=== PATIENT | male | born 1930 | race Caucasian/White ===

== ENCOUNTER 2016-05-22 13:56 | Inpatient (IN) | payer OTHER ==
[~2016-05-22] VITALS: Ht 165.1 cm; Wt 76.4 kg
[~2016-05-22 13:56] MED LIST: ADVAIR 250/501 DISK IH; ALBUTEROL2.5 MG/3 M IH; ATORVASTATIN CA10 MG PO; CEFTIN500 MG PO; COREG25 M1 PO; DOCUSATE SODIU100 MG PO; ENDOCET 5-3251 EACH PO; FLOMAX0.4 MG PO; INHALER IH; JANUVIA100 MG PO; JANUVIA25 M1 PO; KENALOG,ARISTOC15 G2 TP; LISINOPRIL5 MG PO; MEMANTINE HCL10 MG PO; NORVASC5 MG PO; NOVOLOG 10100 UNITS/ SC; PANTOPRAZOLE SO40 MG PO; PLAVIX75 MG PO; SINGULAIR10 MG PO; VENTOLIN HFA18 GM IH
[2016-05-22 14:53] LABS: EOSINOPHIL (%) 0.5 % (0-5); EOSINOPHIL COUNT 0.1 K/uL (0-0.3); HEMATOCRIT 35.4 % (38.0-50.0); IMMATURE GRANULOCYTE (%) 0.4 % (0.0-0.7); IMMATURE GRANULOCYTE COUNT 0.1 K/uL; INSTRUMENT ABS NEUTROPHIL CT 14.2 K/uL; LYMPHOCYTE COUNT 1.6 K/uL (1.0-2.8); MCH 30.2 PG (29.0-34.0); MCHC 33.9 G/DL (30.0-36.0); MCV 89.2 FL (86-99); MEAN PLAT.VOLUME 9.4 uM^3 (9.0-12.4); MONOCYTE (%) 6.8 % (3-12); MONOCYTE COUNT 1.2 K/uL (0-0.8); NEUTROPHIL (%) 82.9 % (45-76); NEUTROPHIL COUNT 14.2 K/uL (1.8-6.4); PLATELET COUNT 288 K/uL (156-360); RBC DIS.WIDTH-CV 12.4 % (11.8-14.6); RBC DIS.WIDTH-SD 40.4 % (39-53); RED BLOOD COUNT 3.97 M/uL (4.00-5.50); WHITE BLOOD COUNT 17.1 K/uL (4.1-10.2)
[2016-05-22 15:08] LABS: CHLORIDE 106 mEq/L (99-109); POTASSIUM 4.6 mEq/L (3.7-5.4); SODIUM 137 mEq/L (136-147)
[2016-05-22 15:11] LABS: GLUCOSE 120 mg/dL (70-99)
[2016-05-22 15:12] LABS: ANION GAP 8 MEQ/L (2-14)
[2016-05-22 15:13] LABS: TOTAL BILIRUBIN 0.4 mg/dL (0.0-1.0)
[2016-05-22 15:14] LABS: ALKALINE PHOSPHATASE 77 IU/L (3-129); GFR ESTIMATE (CALCULATED) 56 mL/min/
[2016-05-22 15:15] LABS: UREA NITROGEN (BUN) 20 mg/dL (9-23)
[2016-05-22 15:23] LABS: TROP-I INTERPRETATION NEGATIVE; TROPONIN-I < 0.01 ng/mL (0.0-0.30)
[2016-05-22 17:00] LABS: INFLUENZA A VIRAL ANTIGEN NEGATIVE; INFLUENZA B VIRAL ANTIGEN NEGATIVE
[2016-05-22] MEDS ORDERED: LISINOPRIL10 MG PO (18:40)
[2016-05-22] MEDS ORDERED: BUMETANIDE1 MG PO (18:41)
[2016-05-22] MEDS ORDERED: QUETIAPINE FUMA25 MG PO (18:41)
[2016-05-22 21:02] VITALS: BP 148/76
[2016-05-23 07:30] VITALS: BP 155/72
[2016-05-23 09:58] LABS: POINT-OF-CARE METER ID UU14174225
[2016-05-23 11:53] LABS: POINT-OF-CARE METER ID UU14174225
[2016-05-23 17:08] LABS: POINT-OF-CARE METER ID UU14188625
[2016-05-23 19:51] VITALS: BP 158/76
[2016-05-23 21:13] LABS: POINT-OF-CARE METER ID UU14188625
[2016-05-24 08:29] VITALS: BP 149/71
[2016-05-24 22:17] LABS: POINT-OF-CARE METER ID UU14188625
[2016-05-24 23:51] VITALS: BP 156/74
[2016-05-25 07:05] LABS: HEMATOCRIT 33.6 % (38.0-50.0); MCH 30.1 PG (29.0-34.0); MCHC 33.9 G/DL (30.0-36.0); MCV 88.7 FL (86-99); MEAN PLAT.VOLUME 9.6 uM^3 (9.0-12.4); PLATELET COUNT 282 K/uL (156-360); RBC DIS.WIDTH-SD 38.7 % (39-53); RED BLOOD COUNT 3.79 M/uL (4.00-5.50); WHITE BLOOD COUNT 20.9 K/uL (4.1-10.2)
[2016-05-25 07:28] LABS: ANION GAP 7 MEQ/L (2-14); CHLORIDE 107 MEQ/L (99-109); GFR ESTIMATE (CALCULATED) > 59 mL/min/; GLUCOSE 164 mg/dL (70-99); POTASSIUM 4.2 MEQ/L (3.7-5.4); SAMPLE HEMOLYSIS CHECK 0; SAMPLE ICTERIC CHECK 0; SAMPLE LIPEMIA CHECK 0; SODIUM 139 MEQ/L (136-147)
[2016-05-25 07:35] LABS: UREA NITROGEN (BUN) 31 mg/dL (9-23)
[2016-05-25 07:49] VITALS: BP 142/68
[2016-05-25 08:14] LABS: ABS NEUTROPHIL COUNT 19.1; ANISOCYTOSIS 1+; ATYPICAL LYMPHOCYTE 0.4 %; BAND NEUTROPHILS 3.1 % (0-8.0); EOSINOPHIL ABS CT 0; INSTRUMENT ABS NEUTROPHIL CT 18.1 K/uL; OVALOCYTES 1+; PLAT.SUFFICIENCY ADEQUATE; POIKILOCYTOSIS 1+; SEG.NEUTROPHILS 88.1 % (46.0-76.0)
[2016-05-25 11:54] LABS: POINT-OF-CARE METER ID UU14188625
[2016-05-25] MEDS ORDERED: PANTOPRAZOLE SO40 MG PO (12:58)
[2016-05-25] MEDS ORDERED: MIRTAZAPINE7.5 MG PO (12:58)
[2016-05-25] MEDS ORDERED: LEVEMIR100 UNIT/2 SC (12:59)
[2016-05-25] MEDS ORDERED: NOVOLOG 10100 UNITS/ SC (13:01)
[2016-05-25] MEDS ORDERED: SPIRIVA RESPIMAT4 GM IH (13:02)
[2016-05-25] MEDS ORDERED: PREDNISONE10 M1 PO (13:03)
== END 2016-05-25 14:59 | disposition home or self-care (01) | DRG 192 ==
LOC: EME → EDBD 13:56 → EDOF 17:20 → 5SOUTH 17:20
PROVIDERS: Emergency Medicine; Family Medicine Sports Medicine
DX: J44.1 Chronic obstructive pulmonary disease with (acute) exacerbation (principal); I10 Essential (primary) hypertension; I25.10 Atherosclerotic heart disease of native coronary artery without angina pectoris; F03.90 Unspecified dementia, unspecified severity, without behavioral disturbance, psychotic disturbance, mood disturbance, and anxiety; R09.02 Hypoxemia; E78.5 Hyperlipidemia, unspecified; D72.829 Elevated white blood cell count, unspecified; E11.9 Type 2 diabetes mellitus without complications; Z95.0 Presence of cardiac pacemaker; J20.9 Acute bronchitis, unspecified; R05 Cough; Z87.891 Personal history of nicotine dependence
CPT/HCPCS: 36600; 70450; 71020; 80048; 80053; 81003; 82803; 82948; 83605; 83880; 84484; 85025; 87040; 87502; 93005; 94640; 94640 76; 94799; 99202; 99281; 99285; J0456; J1650; J1815; J2930; J7030; J7512; J7644

== ENCOUNTER 2016-07-11 19:05 | Inpatient (IN) | payer OTHER ==
[~2016-07-11] VITALS: Ht 157.5 cm; Wt 73.7 kg
[~2016-07-11 19:05] MED LIST changes: +BUMETANIDE1 MG PO; +LEVEMIR100 UNIT/2 SC; +LISINOPRIL10 MG PO; +MIRTAZAPINE7.5 MG PO; +PREDNISONE10 M1 PO; +QUETIAPINE FUMA25 MG PO; +SPIRIVA RESPIMAT4 GM IH
[2016-07-11 21:14] LABS: CHLORIDE 105 mEq/L (99-109); POTASSIUM 4.5 mEq/L (3.7-5.4); SODIUM 139 mEq/L (136-147)
[2016-07-11 21:16] LABS: GLUCOSE 89 mg/dL (70-99)
[2016-07-11 21:17] LABS: ANION GAP 8 MEQ/L (2-14)
[2016-07-11 21:20] LABS: GFR ESTIMATE (CALCULATED) 36 mL/min/
[2016-07-11 21:21] LABS: UREA NITROGEN (BUN) 32 mg/dL (9-23)
[2016-07-11 21:27] LABS: TROP-I INTERPRETATION NEGATIVE; TROPONIN-I < 0.01 ng/mL (0.0-0.30)
[2016-07-11 21:32] LABS: CARBON DIOXIDE (BICARBONATE) 31.9 MEQ/L (20-31); HEMATOCRIT 33.4 % (38.0-50.0); MCHC 33.2 G/DL (30.0-36.0); MCV 90.3 FL (86-99); MEAN PLAT.VOLUME 9.4 uM^3 (9.0-12.4); PLATELET COUNT 236 K/uL (156-360); RBC DIS.WIDTH-SD 43.1 % (39-53); WHITE BLOOD COUNT 13.5 K/uL (4.1-10.2)
[2016-07-11] MEDS ORDERED: NOVOLOG PE100 UNITS/ SC (22:34)
[2016-07-11] MEDS ORDERED: LEVEMIR FL100 UNIT/1 SC (22:34)
[2016-07-11] MEDS ORDERED: PROAIR HFA8.5 GM IH (22:35)
[2016-07-11 23:48] VITALS: BP 144/67
[2016-07-12 03:33] VITALS: BP 144/66
[2016-07-12 05:59] LABS: POINT-OF-CARE METER ID UU13113725
[2016-07-12 06:48] VITALS: BP 159/74
[2016-07-12] MEDS ORDERED: PANTOPRAZOLE SO40 MG PO (10:23)
[2016-07-12 10:38] VITALS: BP 114/80
[2016-07-12 16:34] LABS: POINT-OF-CARE METER ID UU13113725
[2016-07-12 16:44] VITALS: BP 117/60
[2016-07-12 19:27] VITALS: BP 139/74
[2016-07-12 20:08] LABS: POINT-OF-CARE METER ID UU13113725
[2016-07-13 00:07] VITALS: BP 132/67
[2016-07-13 03:49] VITALS: BP 142/82
[2016-07-13 06:38] VITALS: BP 141/67
[2016-07-13 15:01] VITALS: BP 139/63
[2016-07-13 23:05] VITALS: BP 134/78
[2016-07-14 06:11] LABS: POINT-OF-CARE METER ID UU13113725
[2016-07-14 07:10] VITALS: BP 151/72
[2016-07-14 11:19] LABS: POINT-OF-CARE METER ID UU13113725
[2016-07-14 15:55] VITALS: BP 167/79
[2016-07-14] MEDS ORDERED: MIRTAZAPINE7.5 MG PO (19:46)
[2016-07-14] MEDS ORDERED: PREDNISONE10 M1 PO (19:50)
== END 2016-07-14 20:39 | disposition home or self-care (01) | DRG 191 ==
LOC: EME 19:05 → EDOF 22:33 → 5EAST 22:33
PROVIDERS: Emergency Medicine; Family Medicine Sports Medicine
DX: J44.0 Chronic obstructive pulmonary disease with (acute) lower respiratory infection (principal); F02.81 Dementia in other diseases classified elsewhere, unspecified severity, with behavioral disturbance; J44.1 Chronic obstructive pulmonary disease with (acute) exacerbation; J20.9 Acute bronchitis, unspecified; I10 Essential (primary) hypertension; E11.9 Type 2 diabetes mellitus without complications; G30.9 Alzheimer's disease, unspecified; F02.80 Dementia in other diseases classified elsewhere, unspecified severity, without behavioral disturbance, psychotic disturbance, mood disturbance, and anxiety; I25.10 Atherosclerotic heart disease of native coronary artery without angina pectoris; E78.5 Hyperlipidemia, unspecified; Z95.0 Presence of cardiac pacemaker; Z87.891 Personal history of nicotine dependence; K21.9 Gastro-esophageal reflux disease without esophagitis
CPT/HCPCS: 71020; 80048; 82803; 82948; 83605; 83880; 84484; 85027; 87040; 93005; 94640; 94640 76; 94799; 99202; 99281; 99285; J0696; J1100; J1650; J1815; J2060; J2930; J7050

== ENCOUNTER 2016-09-03 22:38 | Emergency (ER) | payer OTHER ==
[~2016-09-03] VITALS: Ht 165.1 cm; Wt 73.1 kg
[~2016-09-03 22:38] MED LIST changes: +LEVEMIR FL100 UNIT/1 SC; +NOVOLOG PE100 UNITS/ SC; +PROAIR HFA8.5 GM IH
[2016-09-03 23:22] LABS: HEMATOCRIT 30.4 % (38.0-50.0); MCH 29.7 PG (29.0-34.0); MCHC 32.9 G/DL (30.0-36.0); MCV 90.2 FL (86-99); MEAN PLAT.VOLUME 9.6 uM^3 (9.0-12.4); PLATELET COUNT 285 K/uL (156-360); RBC DIS.WIDTH-CV 13.1 % (11.8-14.6); RBC DIS.WIDTH-SD 43.4 % (39-53); RED BLOOD COUNT 3.37 M/uL (4.00-5.50); WHITE BLOOD COUNT 16.6 K/uL (4.1-10.2)
[2016-09-03 23:37] LABS: CHLORIDE 109 mEq/L (99-109); POTASSIUM 4.7 mEq/L (3.7-5.4); SODIUM 139 mEq/L (136-147)
[2016-09-03 23:39] LABS: GLUCOSE 112 mg/dL (70-99)
[2016-09-03 23:40] LABS: ANION GAP 10 MEQ/L (2-14)
[2016-09-03 23:42] LABS: GFR ESTIMATE (CALCULATED) 30 mL/min/
[2016-09-03 23:43] LABS: UREA NITROGEN (BUN) 51 mg/dL (9-23)
[2016-09-04 00:24] LABS: ADD MIUA? YES; BILIRUBIN NEGATIVE; BLOOD NEGATIVE; COLOR YELLOW ((YELLOW)); GLUCOSE (STRIP) NEGATIVE; KETONES NEGATIVE; LEUKOCYTES NEGATIVE; NITRITE NEGATIVE; PROTEIN (STRIP) 100; SPECIFIC GRAVITY 1.014 (1.000-1.030); UROBILINOGEN 0.2 MG/DL (0.2-1.0)
[2016-09-04 00:45] LABS: AMORPHOUS URATES CRYSTALS 3+; BACTERIA 1+ /HPF; CASTS PRESENT /LPF; CRYSTALS PRESENT; EPITHELIAL CELLS RARE /HPF; MUCUS NONE SEEN /LPF; RED BLOOD CELLS NONE SEEN /HPF (0-5); UCUL ADDED? NO; WHITE BLOOD CELLS NONE SEEN /HPF (0-5)
[2016-09-04 00:51] LABS: ERTH.SED.RATE 83 MM/HR (0-20)
[2016-09-04] MEDS ORDERED: KEFLEX500 MG PO (01:43)
[2016-09-04 01:57] LABS: C-REACTIVE PROTEIN 92.9 MG/L (0-10)
[2016-09-04 02:40] VITALS: BP 121/67
== END 2016-09-04 02:42 | disposition home or self-care (01) ==
LOC: EME → EDBD 22:38 → EME 09-04 02:42
PROVIDERS: Emergency Medicine
DX: E86.0 Dehydration (principal); L03.115 Cellulitis of right lower limb; J44.9 Chronic obstructive pulmonary disease, unspecified; I10 Essential (primary) hypertension; E78.5 Hyperlipidemia, unspecified; E11.9 Type 2 diabetes mellitus without complications; F03.90 Unspecified dementia, unspecified severity, without behavioral disturbance, psychotic disturbance, mood disturbance, and anxiety; Z79.4 Long term (current) use of insulin; Z87.891 Personal history of nicotine dependence; Z95.0 Presence of cardiac pacemaker
CPT/HCPCS: 71010; 73630; 80048; 81003; 83605; 85027; 85651; 86140; 87086; 99281; 99285; J7030

== ENCOUNTER 2016-09-24 08:50 | Inpatient (IN) | payer OTHER ==
[~2016-09-24] VITALS: Ht 165.1 cm; Wt 72.0 kg
[~2016-09-24 08:50] MED LIST changes: +KEFLEX500 MG PO
[2016-09-24 10:02] LABS: EOSINOPHIL COUNT 0.1 K/uL (0-0.3); HEMATOCRIT 32.2 % (38.0-50.0); IMMATURE GRANULOCYTE (%) 0.6 % (0.0-0.7); IMMATURE GRANULOCYTE COUNT 0.1 K/uL; INSTRUMENT ABS NEUTROPHIL CT 11.4 K/uL; LYMPHOCYTE COUNT 1.4 K/uL (1.0-2.8); MCH 28.8 PG (29.0-34.0); MCHC 32.6 G/DL (30.0-36.0); MCV 88.2 FL (86-99); MONOCYTE (%) 6.3 % (3-12); MONOCYTE COUNT 0.9 K/uL (0-0.8); NEUTROPHIL (%) 82.1 % (45-76); NEUTROPHIL COUNT 11.4 K/uL (1.8-6.4); PLATELET COUNT 289 K/uL (156-360); RBC DIS.WIDTH-CV 12.6 % (11.8-14.6); RBC DIS.WIDTH-SD 41.1 % (39-53); RED BLOOD COUNT 3.65 M/uL (4.00-5.50); WHITE BLOOD COUNT 13.9 K/uL (4.1-10.2)
[2016-09-24 10:08] LABS: POINT-OF-CARE METER ID UU13113702
[2016-09-24 10:08] LABS: INTER. NORMALIZED RATIO 1.2; PROTHROMBIN TIME 12.8 SEC (10.2-12.9)
[2016-09-24 10:10] LABS: CHLORIDE 108 mEq/L (99-109); POTASSIUM 4.5 mEq/L (3.7-5.4); SODIUM 139 mEq/L (136-147)
[2016-09-24 10:12] LABS: GLUCOSE 110 mg/dL (70-99)
[2016-09-24 10:13] LABS: ANION GAP 9 MEQ/L (2-14)
[2016-09-24 10:14] LABS: TOTAL BILIRUBIN 0.4 mg/dL (0.0-1.0)
[2016-09-24 10:16] LABS: ALKALINE PHOSPHATASE 77 IU/L (3-129); GFR ESTIMATE (CALCULATED) > 59 mL/min/
[2016-09-24 10:17] LABS: UREA NITROGEN (BUN) 28 mg/dL (9-23)
[2016-09-24 10:19] LABS: LIPASE 21 U/L (1.0-51.0)
[2016-09-24 15:07] LABS: HEMATOCRIT 30.5 % (38.0-50.0); MCH 29.1 PG (29.0-34.0); MCHC 32.1 G/DL (30.0-36.0); MCV 90.5 FL (86-99); MEAN PLAT.VOLUME 9.3 uM^3 (9.0-12.4); PLATELET COUNT 280 K/uL (156-360); RBC DIS.WIDTH-CV 12.8 % (11.8-14.6); RBC DIS.WIDTH-SD 42.4 % (39-53); RED BLOOD COUNT 3.37 M/uL (4.00-5.50); WHITE BLOOD COUNT 11.2 K/uL (4.1-10.2)
[2016-09-24 19:59] VITALS: BP 148/66
[2016-09-24 21:02] LABS: HEMATOCRIT 28.9 % (38.0-50.0)
[2016-09-24 23:03] VITALS: BP 131/63
[2016-09-25 04:54] VITALS: BP 137/65
[2016-09-25 08:29] VITALS: BP 147/70
[2016-09-25 09:07] LABS: HEMATOCRIT 26.9 % (38.0-50.0)
[2016-09-25 09:31] LABS: ALKALINE PHOSPHATASE 56 IU/L (3-129); ANION GAP 7 MEQ/L (2-14); CHLORIDE 111 MEQ/L (99-109); GFR ESTIMATE (CALCULATED) > 59 mL/min/; GLUCOSE 148 mg/dL (70-99); SAMPLE HEMOLYSIS CHECK 0; SAMPLE ICTERIC CHECK 0; SAMPLE LIPEMIA CHECK 0; SODIUM 141 MEQ/L (136-147); TOTAL BILIRUBIN 0.4 MG/DL (0.0-1.0); UREA NITROGEN (BUN) 21 mg/dL (9-23)
[2016-09-25 11:58] VITALS: BP 132/63
[2016-09-25 15:56] VITALS: BP 136/63
[2016-09-25 21:28] LABS: HEMATOCRIT 29.5 % (38.0-50.0); MCV 89.9 FL (86-99)
[2016-09-25 23:13] VITALS: BP 122/58
[2016-09-26 08:22] VITALS: BP 131/60
[2016-09-26 10:26] LABS: EOSINOPHIL (%) 2.2 % (0-5); EOSINOPHIL COUNT 0.2 K/uL (0-0.3); HEMATOCRIT 28.1 % (38.0-50.0); IMMATURE GRANULOCYTE (%) 0.6 % (0.0-0.7); IMMATURE GRANULOCYTE COUNT 0.1 K/uL; INSTRUMENT ABS NEUTROPHIL CT 5.4 K/uL; LYMPHOCYTE COUNT 1.9 K/uL (1.0-2.8); MCH 29.1 PG (29.0-34.0); MCHC 32.4 G/DL (30.0-36.0); MCV 89.8 FL (86-99); MEAN PLAT.VOLUME 9.5 uM^3 (9.0-12.4); MONOCYTE (%) 11.2 % (3-12); NEUTROPHIL (%) 63.3 % (45-76); NEUTROPHIL COUNT 5.4 K/uL (1.8-6.4); PLATELET COUNT 269 K/uL (156-360); RBC DIS.WIDTH-CV 12.8 % (11.8-14.6); RBC DIS.WIDTH-SD 41.5 % (39-53); RED BLOOD COUNT 3.13 M/uL (4.00-5.50); WHITE BLOOD COUNT 8.5 K/uL (4.1-10.2)
[2016-09-26 10:34] LABS: HEMATOCRIT 28.1 % (38.0-50.0); MCV 89.8 FL (86-99)
[2016-09-26 10:38] LABS: ANION GAP 9 MEQ/L (2-14); CHLORIDE 110 MEQ/L (99-109); POTASSIUM 4.5 MEQ/L (3.7-5.4); SAMPLE HEMOLYSIS CHECK 0; SAMPLE ICTERIC CHECK 0; SAMPLE LIPEMIA CHECK 0; SODIUM 141 MEQ/L (136-147)
[2016-09-26 10:43] LABS: GFR ESTIMATE (CALCULATED) 56 mL/min/; GLUCOSE 118 mg/dL (70-99); UREA NITROGEN (BUN) 19 mg/dL (9-23)
[2016-09-26 11:29] LABS: POINT-OF-CARE METER ID UU13113725
[2016-09-26 15:48] VITALS: BP 150/75
[2016-09-26 16:18] LABS: POINT-OF-CARE METER ID UU13113725
[2016-09-26] MEDS ORDERED: AZITHROMYCIN500 M1 PO (19:03)
[2016-09-26] MEDS ORDERED: QUETIAPINE FUMA25 MG PO (19:04)
[2016-09-26] MEDS ORDERED: MUCINEX600 MG PO (19:05)
[2016-09-26] MEDS ORDERED: ONDANSETRON ODT4 MG PO (19:05)
[2016-09-26] MEDS ORDERED: PROTONIX IV40 MG IV (19:06)
[2016-09-26 20:01] LABS: HEMATOCRIT 28.6 % (38.0-50.0); MCV 88.8 FL (86-99)
[2016-09-27] MEDS ORDERED: PLAVIX75 MG PO ×2 (08:42→08:44)
== END 2016-09-26 21:39 | disposition home or self-care (01) | DRG 377 ==
LOC: EME 08:50 → EDOF 13:03 → ENRESERV 13:04 → 5EAST 15:29
PROVIDERS: Emergency Medicine; Family Medicine Sports Medicine
DX: K92.0 Hematemesis (principal); J44.0 Chronic obstructive pulmonary disease with (acute) lower respiratory infection; J18.9 Pneumonia, unspecified organism; J20.9 Acute bronchitis, unspecified; K21.9 Gastro-esophageal reflux disease without esophagitis; I12.9 Hypertensive chronic kidney disease with stage 1 through stage 4 chronic kidney disease, or unspecified chronic kidney disease; N18.9 Chronic kidney disease, unspecified; E11.22 Type 2 diabetes mellitus with diabetic chronic kidney disease; F03.91 Unspecified dementia, unspecified severity, with behavioral disturbance; D64.9 Anemia, unspecified; I25.10 Atherosclerotic heart disease of native coronary artery without angina pectoris; R26.2 Difficulty in walking, not elsewhere classified; E78.5 Hyperlipidemia, unspecified; F32.9 Major depressive disorder, single episode, unspecified; Z95.0 Presence of cardiac pacemaker; Z79.82 Long term (current) use of aspirin; Z79.02 Long term (current) use of antithrombotics/antiplatelets; Z79.4 Long term (current) use of insulin; Z87.891 Personal history of nicotine dependence
CPT/HCPCS: 71010; 71250; 74241; 80048; 80053; 82948; 83690; 85014; 85018; 85025; 85027; 85610; 93005; 94640; 94640 76; 94760; 94799; 99202; 99281; 99284; C9113; J0696; J1815; J2405; J2765; J7030; J7050

== ENCOUNTER 2016-10-11 04:12 | Inpatient (IN) | payer OTHER ==
[~2016-10-11] VITALS: Ht 157.5 cm; Wt 70.2 kg
[~2016-10-11 04:12] MED LIST changes: +AZITHROMYCIN500 M1 PO; +MUCINEX600 MG PO; +ONDANSETRON ODT4 MG PO; +PROTONIX IV40 MG IV
[2016-10-11 04:53] LABS: HEMATOCRIT 31.9 % (38.0-50.0); MCH 29.1 PG (29.0-34.0); MCHC 32.6 G/DL (30.0-36.0); MCV 89.1 FL (86-99); MEAN PLAT.VOLUME 9.5 uM^3 (9.0-12.4); PLATELET COUNT 315 K/uL (156-360); RBC DIS.WIDTH-CV 13.2 % (11.8-14.6); RBC DIS.WIDTH-SD 43.1 % (39-53); RED BLOOD COUNT 3.58 M/uL (4.00-5.50)
[2016-10-11 05:06] LABS: CHLORIDE 107 mEq/L (99-109); POTASSIUM 4.2 mEq/L (3.7-5.4); SODIUM 140 mEq/L (136-147)
[2016-10-11 05:09] LABS: GLUCOSE 162 mg/dL (70-99)
[2016-10-11 05:10] LABS: ANION GAP 12 MEQ/L (2-14)
[2016-10-11 05:11] LABS: TOTAL BILIRUBIN 0.6 mg/dL (0.0-1.0)
[2016-10-11 05:12] LABS: ALKALINE PHOSPHATASE 83 IU/L (3-129); GFR ESTIMATE (CALCULATED) 34 mL/min/
[2016-10-11 05:13] LABS: UREA NITROGEN (BUN) 32 mg/dL (9-23)
[2016-10-11 05:16] LABS: LIPASE 27 U/L (1.0-51.0)
[2016-10-11 05:44] LABS: TROP-I INTERPRETATION NEGATIVE; TROPONIN-I 0.01 ng/mL (0.0-0.30)
[2016-10-11 07:45] VITALS: BP 127/60
[2016-10-11 11:21] VITALS: BP 155/79
[2016-10-11 12:20] LABS: POINT-OF-CARE METER ID UU13113725
[2016-10-11 16:00] VITALS: BP 134/60
[2016-10-11 17:28] LABS: POINT-OF-CARE METER ID UU13113725
[2016-10-11 19:04] VITALS: BP 168/70
[2016-10-11 23:05] VITALS: BP 111/55
[2016-10-12 03:00] VITALS: BP 125/60
[2016-10-12 07:04] LABS: EOSINOPHIL (%) 0.7 % (0-5); EOSINOPHIL COUNT 0.1 K/uL (0-0.3); HEMATOCRIT 28.3 % (38.0-50.0); IMMATURE GRANULOCYTE (%) 0.4 % (0.0-0.7); INSTRUMENT ABS NEUTROPHIL CT 7.7 K/uL; LYMPHOCYTE COUNT 1.7 K/uL (1.0-2.8); MCH 28.5 PG (29.0-34.0); MCHC 31.4 G/DL (30.0-36.0); MCV 90.7 FL (86-99); MEAN PLAT.VOLUME 9.8 uM^3 (9.0-12.4); MONOCYTE (%) 10.7 % (3-12); MONOCYTE COUNT 1.1 K/uL (0-0.8); NEUTROPHIL (%) 72.2 % (45-76); NEUTROPHIL COUNT 7.7 K/uL (1.8-6.4); PLATELET COUNT 253 K/uL (156-360); RBC DIS.WIDTH-CV 13.5 % (11.8-14.6); RBC DIS.WIDTH-SD 44.2 % (39-53); RED BLOOD COUNT 3.12 M/uL (4.00-5.50); WHITE BLOOD COUNT 10.7 K/uL (4.1-10.2)
[2016-10-12 07:28] LABS: ANION GAP 7 MEQ/L (2-14); CHLORIDE 112 MEQ/L (99-109); GFR ESTIMATE (CALCULATED) 41 mL/min/; POTASSIUM 3.8 MEQ/L (3.7-5.4); SAMPLE HEMOLYSIS CHECK 0; SAMPLE ICTERIC CHECK 0; SAMPLE LIPEMIA CHECK 0; SODIUM 145 MEQ/L (136-147); UREA NITROGEN (BUN) 31 mg/dL (9-23)
[2016-10-12 07:31] LABS: GLUCOSE 118 mg/dL (70-99)
[2016-10-12 13:05] LABS: POINT-OF-CARE METER ID UU13113725
[2016-10-12 16:20] VITALS: BP 164/67
[2016-10-12 16:39] LABS: POINT-OF-CARE METER ID UU13113725
[2016-10-12] MEDS ORDERED: PROTONIX IV40 MG PO (18:01)
== END 2016-10-12 18:29 | disposition home or self-care (01) | DRG 389 ==
LOC: EME 04:12 → EDOF 05:55 → ENRESERV 06:06 → 5EAST 07:12
PROVIDERS: Family Medicine Sports Medicine
DX: K56.41 Fecal impaction (principal); F02.81 Dementia in other diseases classified elsewhere, unspecified severity, with behavioral disturbance; F05 Delirium due to known physiological condition; J44.9 Chronic obstructive pulmonary disease, unspecified; N18.9 Chronic kidney disease, unspecified; K21.9 Gastro-esophageal reflux disease without esophagitis; I25.10 Atherosclerotic heart disease of native coronary artery without angina pectoris; I12.9 Hypertensive chronic kidney disease with stage 1 through stage 4 chronic kidney disease, or unspecified chronic kidney disease; E86.0 Dehydration; E78.5 Hyperlipidemia, unspecified; E11.22 Type 2 diabetes mellitus with diabetic chronic kidney disease; D64.9 Anemia, unspecified; K52.9 Noninfective gastroenteritis and colitis, unspecified; G30.8 Other Alzheimer's disease; Z91.83 Wandering in diseases classified elsewhere; Z87.891 Personal history of nicotine dependence; Z87.01 Personal history of pneumonia (recurrent); Z95.0 Presence of cardiac pacemaker
CPT/HCPCS: 71250; 74176; 80048; 80053; 81003; 82948; 83605; 83690; 84484; 85025; 85027; 87493; 93005; 94640; 94640 76; 94799; 99202; 99281; 99285; C9113; J1650; J1815; J2405; J3010; J7030; J7120; Q0169; S0030

== ENCOUNTER 2017-01-26 16:41 | Emergency (ER) | payer OTHER ==
[~2017-01-26] VITALS: Ht 165.1 cm; Wt 67.7 kg
[~2017-01-26 16:41] MED LIST changes: +PROTONIX IV40 MG PO
[2017-01-26 20:01] LABS: HEMATOCRIT 35.8 % (38.0-50.0); MCH 29.7 PG (29.0-34.0); MCHC 33.5 G/DL (30.0-36.0); MCV 88.6 FL (86-99); MEAN PLAT.VOLUME 9.9 uM^3 (9.0-12.4); PLATELET COUNT 253 K/uL (156-360); RBC DIS.WIDTH-CV 13.4 % (11.8-14.6); RBC DIS.WIDTH-SD 43.8 % (39-53); RED BLOOD COUNT 4.04 M/uL (4.00-5.50); WHITE BLOOD COUNT 9.7 K/uL (4.1-10.2)
[2017-01-26 20:09] LABS: CHLORIDE 111 mEq/L (99-109); POTASSIUM 4.5 mEq/L (3.7-5.4); SODIUM 143 mEq/L (136-147)
[2017-01-26 20:11] LABS: GLUCOSE 118 mg/dL (70-99)
[2017-01-26 20:12] LABS: ANION GAP 11 MEQ/L (2-14)
[2017-01-26 20:13] LABS: TOTAL BILIRUBIN 0.5 mg/dL (0.0-1.0)
[2017-01-26 20:15] LABS: ALKALINE PHOSPHATASE 77 IU/L (3-129); GFR ESTIMATE (CALCULATED) 56 mL/min/ (58.99-99999)
[2017-01-26 20:16] LABS: UREA NITROGEN (BUN) 24 mg/dL (9-23)
[2017-01-26 20:18] LABS: LIPASE 18 U/L (1.0-51.0)
[2017-01-26 20:59] LABS: TROP-I INTERPRETATION NEGATIVE; TROPONIN-I 0.02 ng/mL (0.0-0.30)
[2017-01-26 22:00] VITALS: BP 126/61
[2017-01-26 22:11] LABS: ADD MIUA? YES; BILIRUBIN NEGATIVE; BLOOD MODERATE; COLOR YELLOW ((YELLOW)); GLUCOSE (STRIP) NEGATIVE; KETONES NEGATIVE; LEUKOCYTES MODERATE; NITRITE NEGATIVE; PROTEIN (STRIP) 100; UROBILINOGEN 0.2 MG/DL (0.2-1.0)
[2017-01-26 22:28] LABS: BACTERIA 2+ /HPF; CASTS NONE SEEN /LPF; CRYSTALS NONE SEEN; EPITHELIAL CELLS RARE /HPF; MUCUS NONE SEEN /LPF; UCUL ADDED? YES; WHITE BLOOD CELLS 20-30 /HPF (0-5)
[2017-01-26] MEDS ORDERED: CIPRO500 MG PO (23:28)
[2017-01-26] MEDS ORDERED: ONDANSETRON ODT4 MG PO (23:28)
[2017-01-28] MEDS ORDERED: PROTONIX40 MG PO (15:10)
== END 2017-01-27 00:25 | disposition home or self-care (01) ==
LOC: EME 16:41
PROVIDERS: Emergency Medicine
DX: N39.0 Urinary tract infection, site not specified (principal); R11.2 Nausea with vomiting, unspecified; R07.9 Chest pain, unspecified; M79.89 Other specified soft tissue disorders; F03.90 Unspecified dementia, unspecified severity, without behavioral disturbance, psychotic disturbance, mood disturbance, and anxiety; I12.9 Hypertensive chronic kidney disease with stage 1 through stage 4 chronic kidney disease, or unspecified chronic kidney disease; N18.9 Chronic kidney disease, unspecified; E78.5 Hyperlipidemia, unspecified; J44.9 Chronic obstructive pulmonary disease, unspecified; Z87.01 Personal history of pneumonia (recurrent); Z95.0 Presence of cardiac pacemaker; Z87.891 Personal history of nicotine dependence
CPT/HCPCS: 71010; 74176; 80053; 81003; 83605; 83690; 84484; 85027; 87040; 87077; 87086; 87186; 87502; 87801; 93005; 99281; 99285; J0696; J2060; J2405

== ENCOUNTER 2017-01-27 15:31 | Inpatient (IN) | payer OTHER ==
[~2017-01-27] VITALS: Ht 165.1 cm; Wt 61.6 kg
[~2017-01-27 15:31] MED LIST changes: +CIPRO500 MG PO
[2017-01-27 16:51] LABS: EOSINOPHIL (%) 0.5 % (0-5); HEMATOCRIT 35.6 % (38.0-50.0); IMMATURE GRANULOCYTE (%) 0.5 % (0.0-0.7); INSTRUMENT ABS NEUTROPHIL CT 5.4 K/uL; LYMPHOCYTE COUNT 1.2 K/uL (1.0-2.8); MCH 29.6 PG (29.0-34.0); MCHC 33.1 G/DL (30.0-36.0); MCV 89.4 FL (86-99); MEAN PLAT.VOLUME 10.1 uM^3 (9.0-12.4); MONOCYTE COUNT 0.7 K/uL (0-0.8); NEUTROPHIL COUNT 5.4 K/uL (1.8-6.4); PLATELET COUNT 243 K/uL (156-360); RBC DIS.WIDTH-CV 13.2 % (11.8-14.6); RBC DIS.WIDTH-SD 43.4 % (39-53); RED BLOOD COUNT 3.98 M/uL (4.00-5.50); WHITE BLOOD COUNT 7.4 K/uL (4.1-10.2)
[2017-01-27 16:59] LABS: CHLORIDE 108 mEq/L (99-109); POTASSIUM 4.2 mEq/L (3.7-5.4); SODIUM 140 mEq/L (136-147)
[2017-01-27 17:01] LABS: GLUCOSE 111 mg/dL (70-99)
[2017-01-27 17:03] LABS: ANION GAP 11 MEQ/L (2-14); TOTAL BILIRUBIN 0.4 mg/dL (0.0-1.0)
[2017-01-27 17:05] LABS: ALKALINE PHOSPHATASE 79 IU/L (3-129); GFR ESTIMATE (CALCULATED) > 59 mL/min/ (58.99-99999)
[2017-01-27 17:06] LABS: UREA NITROGEN (BUN) 23 mg/dL (9-23)
[2017-01-27 20:50] VITALS: BP 136/61
[2017-01-28 00:50] VITALS: BP 143/67
[2017-01-28 06:05] LABS: EOSINOPHIL (%) 1.6 % (0-5); EOSINOPHIL COUNT 0.1 K/uL (0-0.3); IMMATURE GRANULOCYTE (%) 0.5 % (0.0-0.7); INSTRUMENT ABS NEUTROPHIL CT 4.6 K/uL; LYMPHOCYTE COUNT 1.6 K/uL (1.0-2.8); MCH 29.7 PG (29.0-34.0); MCHC 33.1 G/DL (30.0-36.0); MCV 89.6 FL (86-99); MEAN PLAT.VOLUME 9.9 uM^3 (9.0-12.4); MONOCYTE (%) 11.6 % (3-12); MONOCYTE COUNT 0.9 K/uL (0-0.8); NEUTROPHIL (%) 63.5 % (45-76); NEUTROPHIL COUNT 4.6 K/uL (1.8-6.4); PLATELET COUNT 242 K/uL (156-360); RBC DIS.WIDTH-CV 13.2 % (11.8-14.6); RBC DIS.WIDTH-SD 43.3 % (39-53); RED BLOOD COUNT 3.57 M/uL (4.00-5.50); WHITE BLOOD COUNT 7.3 K/uL (4.1-10.2)
[2017-01-28 06:40] LABS: ANION GAP 8 MEQ/L (2-14); CHLORIDE 110 MEQ/L (99-109); GFR ESTIMATE (CALCULATED) > 59 mL/min/ (58.99-99999); GLUCOSE 95 mg/dL (70-99); POTASSIUM 3.7 MEQ/L (3.7-5.4); SAMPLE HEMOLYSIS CHECK 0; SAMPLE ICTERIC CHECK 0; SAMPLE LIPEMIA CHECK 0; SODIUM 142 MEQ/L (136-147); UREA NITROGEN (BUN) 19 mg/dL (9-23)
[2017-01-28 08:12] VITALS: BP 166/78
[2017-01-28] MEDS ORDERED: PROTONIX40 MG PO (15:10)
[2017-01-28 16:10] VITALS: BP 132/60
[2017-01-28 23:25] VITALS: BP 142/62
[2017-01-29 07:58] VITALS: BP 129/58
[2017-01-29 18:26] VITALS: BP 126/72
[2017-01-30 06:10] LABS: EOSINOPHIL (%) 2.5 % (0-5); EOSINOPHIL COUNT 0.2 K/uL (0-0.3); IMMATURE GRANULOCYTE (%) 0.4 % (0.0-0.7); INSTRUMENT ABS NEUTROPHIL CT 6.2 K/uL; LYMPHOCYTE COUNT 1.8 K/uL (1.0-2.8); MCH 28.6 PG (29.0-34.0); MCHC 32.7 G/DL (30.0-36.0); MCV 87.5 FL (86-99); MEAN PLAT.VOLUME 9.8 uM^3 (9.0-12.4); MONOCYTE (%) 11.5 % (3-12); MONOCYTE COUNT 1.1 K/uL (0-0.8); NEUTROPHIL (%) 66.3 % (45-76); NEUTROPHIL COUNT 6.2 K/uL (1.8-6.4); PLATELET COUNT 268 K/uL (156-360); RBC DIS.WIDTH-CV 13.1 % (11.8-14.6); RBC DIS.WIDTH-SD 42.1 % (39-53); RED BLOOD COUNT 3.77 M/uL (4.00-5.50); WHITE BLOOD COUNT 9.3 K/uL (4.1-10.2)
[2017-01-30 06:39] LABS: ANION GAP 10 MEQ/L (2-14); CHLORIDE 108 MEQ/L (99-109); GFR ESTIMATE (CALCULATED) > 59 mL/min/ (58.99-99999); GLUCOSE 105 mg/dL (70-99); POTASSIUM 3.9 MEQ/L (3.7-5.4); SAMPLE HEMOLYSIS CHECK 0; SAMPLE ICTERIC CHECK 0; SAMPLE LIPEMIA CHECK 0; SODIUM 142 MEQ/L (136-147); UREA NITROGEN (BUN) 19 mg/dL (9-23)
[2017-01-30 07:42] VITALS: BP 155/75
[2017-01-30] MEDS ORDERED: TYLENOL REGULA325 MG PO (11:27)
[2017-01-30] MEDS ORDERED: CIPRO500 MG PO (11:29)
== END 2017-01-30 16:54 | disposition home or self-care (01) | DRG 690 ==
LOC: EME → EDBD 15:31 → EDOF 19:10 → 5EAST 19:10 → ENRESERV 19:27 → 5EAST 20:15
PROVIDERS: Emergency Medicine; Family Medicine Sports Medicine
DX: N39.0 Urinary tract infection, site not specified (principal); K21.9 Gastro-esophageal reflux disease without esophagitis; J43.9 Emphysema, unspecified; I12.9 Hypertensive chronic kidney disease with stage 1 through stage 4 chronic kidney disease, or unspecified chronic kidney disease; E11.22 Type 2 diabetes mellitus with diabetic chronic kidney disease; B96.20 Unspecified Escherichia coli [E. coli] as the cause of diseases classified elsewhere; N18.9 Chronic kidney disease, unspecified; Z95.0 Presence of cardiac pacemaker; E78.5 Hyperlipidemia, unspecified; F02.81 Dementia in other diseases classified elsewhere, unspecified severity, with behavioral disturbance; G30.9 Alzheimer's disease, unspecified; I25.10 Atherosclerotic heart disease of native coronary artery without angina pectoris; Z87.01 Personal history of pneumonia (recurrent); Z79.899 Other long term (current) drug therapy
CPT/HCPCS: 71020; 80048; 80053; 81003; 83605; 85025; 87040; 94640; 94640 76; 99202; 99281; 99285; J0696; J1650; J1956

== ENCOUNTER 2017-03-31 10:21 | Inpatient (IN) | payer OTHER ==
[~2017-03-31] VITALS: Ht 165.1 cm; Wt 68.3 kg
[~2017-03-31 10:21] MED LIST changes: +PROTONIX40 MG PO; +TYLENOL REGULA325 MG PO
[2017-03-31 11:47] LABS: BASE EXCESS -0.1 mEq/L (-3 to +3); BICARBONATE 23.6 mEq/L (22-26); CARBOXY HGB 1.9 % (0-5); METHEMOGLOBIN 0.7 % (0-1.5); PCO2 34 mm Hg (35-45); PO2 96 mm Hg (80-100); pH 7.45 (7.35-7.45)
[2017-03-31 11:49] LABS: COMMENTS - BLOOD GASES A+C+; DEVICE NCH; O2 FLOW 13 L/MIN; SITE LR
[2017-03-31 11:50] LABS: TOTAL RESP RATE 25 resp/min
[2017-03-31 11:52] LABS: BASOPHIL (%) 0.2 % (0-1); EOSINOPHIL (%) 0.1 % (0-5); HEMATOCRIT 34.7 % (38.0-50.0); HEMOGLOBIN 11.7 G/DL (12.5-16.6); IMMATURE GRANULOCYTE (%) 0.5 % (0.0-0.7); LYMPHOCYTE (%) 10.8 % (15-42); LYMPHOCYTE COUNT 2.1 K/uL (1.0-2.8); MCH 29.9 PG (29.0-34.0); MCHC 33.7 G/DL (30.0-36.0); MCV 88.7 FL (86-99); MONOCYTE (%) 6.9 % (3-12); MONOCYTE COUNT 1.3 K/uL (0-0.8); NEUTROPHIL (%) 81.5 % (45-76); NEUTROPHIL COUNT 15.8 K/uL (1.8-6.4); PLATELET COUNT 207 K/uL (156-360); RBC DIS.WIDTH-CV 13.4 % (11.8-14.6); RBC DIS.WIDTH-SD 43.8 % (39-53); RED BLOOD COUNT 3.91 M/uL (4.00-5.50); WHITE BLOOD COUNT 19.4 K/uL (4.1-10.2)
[2017-03-31 11:58] LABS: INTER. NORMALIZED RATIO 1.2
[2017-03-31 12:01] LABS: PTT 29.7 SEC (25-37)
[2017-03-31 12:02] LABS: CHLORIDE 107 mEq/L (99-109); POTASSIUM 5.3 mEq/L (3.7-5.4); SODIUM 138 mEq/L (136-147)
[2017-03-31 12:04] LABS: GLUCOSE 145 mg/dL (70-99)
[2017-03-31 12:08] LABS: CREATININE 1.4 mg/dL (0.6-1.3); GFR ESTIMATE (CALCULATED) 51 mL/min/ (58.99-99999)
[2017-03-31 12:09] LABS: UREA NITROGEN (BUN) 27 mg/dL (9-23)
[2017-03-31 12:13] LABS: TROP-I INTERPRETATION NEGATIVE; TROPONIN-I < 0.01 ng/mL (0.0-0.30)
[2017-03-31] MEDS ORDERED: JANUVIA100 MG PO (15:02)
[2017-03-31 19:00] VITALS: BP 130/73
[2017-03-31 23:21] VITALS: BP 147/54
[2017-04-01 03:35] VITALS: BP 113/56
[2017-04-01 05:46] LABS: BASOPHIL (%) 0.2 % (0-1); EOSINOPHIL (%) 0 % (0-5); HEMATOCRIT 34.3 % (38.0-50.0); HEMOGLOBIN 11.3 G/DL (12.5-16.6); IMMATURE GRANULOCYTE (%) 0.4 % (0.0-0.7); LYMPHOCYTE (%) 5.1 % (15-42); LYMPHOCYTE COUNT 0.9 K/uL (1.0-2.8); MCH 29.7 PG (29.0-34.0); MCHC 32.9 G/DL (30.0-36.0); MCV 90.3 FL (86-99); MONOCYTE (%) 1.2 % (3-12); MONOCYTE COUNT 0.2 K/uL (0-0.8); NEUTROPHIL (%) 93.1 % (45-76); NEUTROPHIL COUNT 16.1 K/uL (1.8-6.4); PLATELET COUNT 201 K/uL (156-360); RBC DIS.WIDTH-CV 13.4 % (11.8-14.6); RBC DIS.WIDTH-SD 44.2 % (39-53); WHITE BLOOD COUNT 17.3 K/uL (4.1-10.2)
[2017-04-01 06:07] LABS: CHLORIDE 105 MEQ/L (99-109); CREATININE 1.5 MG/DL (0.6-1.3); GFR ESTIMATE (CALCULATED) 47 mL/min/ (58.99-99999); GLUCOSE 215 mg/dL (70-99); POTASSIUM 5.1 MEQ/L (3.7-5.4); SODIUM 137 MEQ/L (136-147); UREA NITROGEN (BUN) 35 mg/dL (9-23)
[2017-04-01 07:15] VITALS: BP 132/65
[2017-04-01 12:30] VITALS: BP 147/66
[2017-04-01 16:14] VITALS: BP 130/64
[2017-04-01 20:34] VITALS: BP 127/81
[2017-04-01 23:27] VITALS: BP 143/63
[2017-04-02 03:34] VITALS: BP 119/72
[2017-04-02 06:22] LABS: BASOPHIL (%) 0.1 % (0-1); EOSINOPHIL (%) 0 % (0-5); HEMATOCRIT 32.3 % (38.0-50.0); HEMOGLOBIN 10.6 G/DL (12.5-16.6); IMMATURE GRANULOCYTE (%) 0.7 % (0.0-0.7); LYMPHOCYTE (%) 4.8 % (15-42); LYMPHOCYTE COUNT 0.9 K/uL (1.0-2.8); MCH 29.2 PG (29.0-34.0); MCHC 32.8 G/DL (30.0-36.0); MONOCYTE (%) 2.5 % (3-12); MONOCYTE COUNT 0.5 K/uL (0-0.8); NEUTROPHIL (%) 91.9 % (45-76); NEUTROPHIL COUNT 17.7 K/uL (1.8-6.4); PLATELET COUNT 211 K/uL (156-360); RBC DIS.WIDTH-CV 12.9 % (11.8-14.6); RBC DIS.WIDTH-SD 42.5 % (39-53); RED BLOOD COUNT 3.63 M/uL (4.00-5.50); WHITE BLOOD COUNT 19.3 K/uL (4.1-10.2)
[2017-04-02 06:57] LABS: CHLORIDE 107 MEQ/L (99-109); CREATININE 1.4 MG/DL (0.6-1.3); GFR ESTIMATE (CALCULATED) 51 mL/min/ (58.99-99999); GLUCOSE 191 mg/dL (70-99); SODIUM 139 MEQ/L (136-147); UREA NITROGEN (BUN) 50 mg/dL (9-23)
[2017-04-02 08:50] VITALS: BP 132/62
[2017-04-02 12:40] VITALS: BP 125/59
[2017-04-02 16:50] VITALS: BP 155/88
[2017-04-02 20:15] VITALS: BP 170/76
[2017-04-03] VITALS (7 sets, daily range): BP systolic 126–150; BP diastolic 66–98
[2017-04-04 10:34] VITALS: BP 176/91
[2017-04-04 11:50] VITALS: BP 151/74
[2017-04-04] MEDS ORDERED: PREDNISONE20 MG PO (12:33)
[2017-04-04] MEDS ORDERED: AMOX TR-K CLV1 EAC4 PO (12:33)
[2017-04-04] MEDS ORDERED: DOCUSATE SODIU100 MG PO (12:33)
[2017-04-04] MEDS ORDERED: ZOLPIDEM TARTRAT5 MG PO (12:33)
== END 2017-04-04 14:28 | disposition home or self-care (01) | DRG 178 ==
LOC: EME 10:21 → 4EAST 15:33 → EDOF 15:33 → ENRESERV 15:35 → 4EAST 17:33 → ENRESERV 04-03 16:43 → 3EAST 04-03 20:21 → ENPENDDIS 04-04 → 3EAST 04-04 14:28
PROVIDERS: Emergency Medicine; Family Medicine Sports Medicine
DX: J69.0 Pneumonitis due to inhalation of food and vomit (principal); J44.0 Chronic obstructive pulmonary disease with (acute) lower respiratory infection; J44.1 Chronic obstructive pulmonary disease with (acute) exacerbation; F02.81 Dementia in other diseases classified elsewhere, unspecified severity, with behavioral disturbance; J98.11 Atelectasis; F05 Delirium due to known physiological condition; J90 Pleural effusion, not elsewhere classified; G30.9 Alzheimer's disease, unspecified; J15.9 Unspecified bacterial pneumonia; E78.5 Hyperlipidemia, unspecified; E86.0 Dehydration; E11.22 Type 2 diabetes mellitus with diabetic chronic kidney disease; I12.9 Hypertensive chronic kidney disease with stage 1 through stage 4 chronic kidney disease, or unspecified chronic kidney disease; I25.10 Atherosclerotic heart disease of native coronary artery without angina pectoris; K21.9 Gastro-esophageal reflux disease without esophagitis; K59.00 Constipation, unspecified; N18.1 Chronic kidney disease, stage 1; D64.9 Anemia, unspecified; F41.9 Anxiety disorder, unspecified; J30.9 Allergic rhinitis, unspecified; M19.90 Unspecified osteoarthritis, unspecified site; Z87.891 Personal history of nicotine dependence; Z79.84 Long term (current) use of oral hypoglycemic drugs; Z79.51 Long term (current) use of inhaled steroids; Z87.01 Personal history of pneumonia (recurrent); Z95.0 Presence of cardiac pacemaker
CPT/HCPCS: 36600; 71045; 71275; 74230; 80048; 81003; 82803; 82948; 83605; 83880; 84484; 85025; 85610; 85730; 87040; 87070; 87205; 87449; 87502; 92526 GN; 92611 GN; 93005; 94640; 94640 76; 94799; 99281; 99285; J0456; J0692; J1630; J1650; J1815; J1956; J2060; J2543; J2930; J7030; J7050; J7512

== ENCOUNTER 2017-04-27 09:57 | Inpatient (IN) | payer OTHER ==
[~2017-04-27] VITALS: Ht 162.6 cm; Wt 62.5 kg
[~2017-04-27 09:57] MED LIST changes: +AMOX TR-K CLV1 EAC4 PO; +PREDNISONE20 MG PO; +ZOLPIDEM TARTRAT5 MG PO
[2017-04-27 10:34] LABS: BASOPHIL (%) 0.2 % (0-1); EOSINOPHIL (%) 0.1 % (0-5); HEMATOCRIT 37.3 % (38.0-50.0); HEMOGLOBIN 12.7 G/DL (12.5-16.6); IMMATURE GRANULOCYTE (%) 0.4 % (0.0-0.7); LYMPHOCYTE (%) 9.7 % (15-42); LYMPHOCYTE COUNT 1.3 K/uL (1.0-2.8); MCH 30.3 PG (29.0-34.0); MONOCYTE (%) 9.7 % (3-12); MONOCYTE COUNT 1.3 K/uL (0-0.8); NEUTROPHIL (%) 79.9 % (45-76); NEUTROPHIL COUNT 10.4 K/uL (1.8-6.4); PLATELET COUNT 317 K/uL (156-360); RBC DIS.WIDTH-CV 13.6 % (11.8-14.6); RBC DIS.WIDTH-SD 43.9 % (39-53); RED BLOOD COUNT 4.19 M/uL (4.00-5.50)
[2017-04-27 10:42] LABS: ALBUMIN 3.5 g/dL (3.2-4.8); CHLORIDE 108 mEq/L (99-109); POTASSIUM 4.2 mEq/L (3.7-5.4); SODIUM 141 mEq/L (136-147)
[2017-04-27 10:44] LABS: GLUCOSE 144 mg/dL (70-99); TOTAL PROTEIN 7.4 g/dL (6.4-8.3)
[2017-04-27 10:46] LABS: TOTAL BILIRUBIN 0.6 mg/dL (0.0-1.0)
[2017-04-27 10:48] LABS: ALKALINE PHOSPHATASE 112 IU/L (3-129); CREATININE 1.3 mg/dL (0.6-1.3); GFR ESTIMATE (CALCULATED) 56 mL/min/ (58.99-99999)
[2017-04-27 10:49] LABS: UREA NITROGEN (BUN) 20 mg/dL (9-23)
[2017-04-27 10:50] LABS: AST (GOT) 13 IU/L (2-34)
[2017-04-27 10:51] LABS: ALT (GPT) 9 IU/L (3-49)
[2017-04-27 10:54] LABS: TROP-I INTERPRETATION NEGATIVE; TROPONIN-I < 0.01 ng/mL (0.0-0.30)
[2017-04-27 11:04] LABS: BASE EXCESS -0.6 mEq/L (-3 to +3); BICARBONATE 23.1 mEq/L (22-26); CARBOXY HGB 1.5 % (0-5); COMMENTS - BLOOD GASES +C; DEVICE NC; METHEMOGLOBIN 0.9 % (0-1.5); O2 FLOW 5 L/MIN; PCO2 34 mm Hg (35-45); PO2 104 mm Hg (80-100); SITE RR +A; TOTAL RESP RATE 24 resp/min; pH 7.44 (7.35-7.45)
[2017-04-27 18:18] VITALS: BP 101/55
[2017-04-27 20:16] VITALS: BP 130/60
[2017-04-28 00:03] VITALS: BP 129/62
[2017-04-28 04:22] VITALS: BP 132/66
[2017-04-28 06:33] LABS: BASOPHIL (%) 0.1 % (0-1); EOSINOPHIL (%) 0 % (0-5); HEMATOCRIT 31.1 % (38.0-50.0); IMMATURE GRANULOCYTE (%) 0.9 % (0.0-0.7); LYMPHOCYTE (%) 7.1 % (15-42); MCH 29.8 PG (29.0-34.0); MCHC 33.4 G/DL (30.0-36.0); MCV 89.1 FL (86-99); MONOCYTE (%) 2.4 % (3-12); MONOCYTE COUNT 0.3 K/uL (0-0.8); NEUTROPHIL (%) 89.5 % (45-76); NEUTROPHIL COUNT 12.7 K/uL (1.8-6.4); PLATELET COUNT 266 K/uL (156-360); RBC DIS.WIDTH-CV 13.6 % (11.8-14.6); RBC DIS.WIDTH-SD 44.2 % (39-53); RED BLOOD COUNT 3.49 M/uL (4.00-5.50); WHITE BLOOD COUNT 14.1 K/uL (4.1-10.2)
[2017-04-28 06:38] LABS: HEMOGLOBIN 10.4 G/DL (12.5-16.6)
[2017-04-28 06:53] LABS: CHLORIDE 109 MEQ/L (99-109); CREATININE 1.4 MG/DL (0.6-1.3); GFR ESTIMATE (CALCULATED) 51 mL/min/ (58.99-99999); POTASSIUM 4.2 MEQ/L (3.7-5.4); SODIUM 141 MEQ/L (136-147); UREA NITROGEN (BUN) 23 mg/dL (9-23)
[2017-04-28 06:56] LABS: GLUCOSE 228 mg/dL (70-99)
[2017-04-28 07:20] VITALS: BP 137/67
[2017-04-28 12:03] VITALS: BP 102/51
[2017-04-28 15:37] VITALS: BP 124/59
[2017-04-28 23:35] VITALS: BP 100/49
[2017-04-29 09:07] VITALS: BP 140/66
[2017-04-29 11:35] VITALS: BP 133/63
[2017-04-29 15:55] VITALS: BP 139/69
[2017-04-30] VITALS (7 sets, daily range): BP systolic 148–186; BP diastolic 70–109
[2017-04-30 06:43] LABS: BASOPHIL (%) 0.2 % (0-1); EOSINOPHIL (%) 0 % (0-5); HEMATOCRIT 36.9 % (38.0-50.0); IMMATURE GRANULOCYTE (%) 3.7 % (0.0-0.7); LYMPHOCYTE (%) 5.8 % (15-42); MCHC 32.5 G/DL (30.0-36.0); MCV 89.1 FL (86-99); MONOCYTE (%) 3.9 % (3-12); MONOCYTE COUNT 0.7 K/uL (0-0.8); NEUTROPHIL (%) 86.4 % (45-76); NEUTROPHIL COUNT 14.4 K/uL (1.8-6.4); PLATELET COUNT 319 K/uL (156-360); RBC DIS.WIDTH-CV 13.5 % (11.8-14.6); RBC DIS.WIDTH-SD 44.5 % (39-53); RED BLOOD COUNT 4.14 M/uL (4.00-5.50); WHITE BLOOD COUNT 16.7 K/uL (4.1-10.2)
[2017-04-30 06:55] LABS: CHLORIDE 105 MEQ/L (99-109); CREATININE 1.1 MG/DL (0.6-1.3); GFR ESTIMATE (CALCULATED) > 59 mL/min/ (58.99-99999); GLUCOSE 174 mg/dL (70-99); POTASSIUM 3.8 MEQ/L (3.7-5.4); SODIUM 139 MEQ/L (136-147); UREA NITROGEN (BUN) 22 mg/dL (9-23)
[2017-05-01 08:00] VITALS: BP 152/70
[2017-05-01 16:00] VITALS: BP 175/90
[2017-05-01 19:39] VITALS: BP 143/77
[2017-05-01 23:22] VITALS: BP 150/72
[2017-05-02 07:37] LABS: CREATININE 1.1 MG/DL (0.6-1.3); GFR ESTIMATE (CALCULATED) > 59 mL/min/ (58.99-99999)
[2017-05-02 08:38] VITALS: BP 180/85
[2017-05-02 09:25] VITALS: BP 154/78
[2017-05-02] MEDS ORDERED: CALCIUM CARB1 TABLET PO (14:00)
[2017-05-02] MEDS ORDERED: PREDNISONE10 M1 PO (14:01)
[2017-05-02] MEDS ORDERED: AUGMENTIN875 MG PO (14:02)
[2017-05-02 15:48] VITALS: BP 176/78
[2017-05-02 17:12] VITALS: BP 166/72
[2017-05-03 00:21] VITALS: BP 138/88
[2017-05-03 06:15] LABS: BASOPHIL (%) 0.4 % (0-1); BASOPHIL COUNT 0.1 K/uL (0-0.1); EOSINOPHIL (%) 0.2 % (0-5); HEMOGLOBIN 12.6 G/DL (12.5-16.6); LYMPHOCYTE (%) 17.4 % (15-42); LYMPHOCYTE COUNT 2.1 K/uL (1.0-2.8); MCH 29.1 PG (29.0-34.0); MCHC 33.2 G/DL (30.0-36.0); MCV 87.8 FL (86-99); MONOCYTE (%) 14.4 % (3-12); MONOCYTE COUNT 1.7 K/uL (0-0.8); NEUTROPHIL (%) 63.6 % (45-76); NEUTROPHIL COUNT 7.5 K/uL (1.8-6.4); NRBC (%) 0.2 /100 WBC (0-0); PLATELET COUNT 250 K/uL (156-360); RBC DIS.WIDTH-CV 13.1 % (11.8-14.6); RBC DIS.WIDTH-SD 42.5 % (39-53); RED BLOOD COUNT 4.33 M/uL (4.00-5.50); WHITE BLOOD COUNT 11.8 K/uL (4.1-10.2)
[2017-05-03 06:45] LABS: CHLORIDE 107 MEQ/L (99-109); CREATININE 1.2 MG/DL (0.6-1.3); GFR ESTIMATE (CALCULATED) > 59 mL/min/ (58.99-99999); GLUCOSE 158 mg/dL (70-99); POTASSIUM 3.4 MEQ/L (3.7-5.4); SODIUM 143 MEQ/L (136-147); UREA NITROGEN (BUN) 28 mg/dL (9-23)
[2017-05-03 07:00] VITALS: BP 197/93
[2017-05-03 08:02] VITALS: BP 174/84
[2017-05-03] MEDS ORDERED: APRESOLINE25 MG PO (15:30)
[2017-05-03] MEDS ORDERED: K-DUR20 MEQ PO (15:32)
== END 2017-05-03 17:29 | disposition home or self-care (01) | DRG 177 ==
LOC: EME 09:57 → 5EAST 12:02 → EDOF 12:02 → ENRESERV 12:16 → 5EAST 17:23
PROVIDERS: Emergency Medicine; Family Medicine Sports Medicine
DX: J69.0 Pneumonitis due to inhalation of food and vomit (principal); J96.01 Acute respiratory failure with hypoxia; J44.1 Chronic obstructive pulmonary disease with (acute) exacerbation; I12.9 Hypertensive chronic kidney disease with stage 1 through stage 4 chronic kidney disease, or unspecified chronic kidney disease; N18.9 Chronic kidney disease, unspecified; G30.9 Alzheimer's disease, unspecified; F02.81 Dementia in other diseases classified elsewhere, unspecified severity, with behavioral disturbance; I25.10 Atherosclerotic heart disease of native coronary artery without angina pectoris; E11.22 Type 2 diabetes mellitus with diabetic chronic kidney disease; E78.5 Hyperlipidemia, unspecified; K21.9 Gastro-esophageal reflux disease without esophagitis; R13.10 Dysphagia, unspecified; F41.9 Anxiety disorder, unspecified; F29 Unspecified psychosis not due to a substance or known physiological condition; M19.90 Unspecified osteoarthritis, unspecified site; Z79.84 Long term (current) use of oral hypoglycemic drugs; Z79.02 Long term (current) use of antithrombotics/antiplatelets; Z95.0 Presence of cardiac pacemaker; Z87.01 Personal history of pneumonia (recurrent); Z87.891 Personal history of nicotine dependence
CPT/HCPCS: 36600; 71045; 71046; 74230; 80048; 80053; 80202; 81003; 82565; 82803; 82948; 83605; 83880; 84484; 85025; 87040; 87502; 92610 GN; 92611 GN; 93005; 94640; 94640 76; 94760; 94799; 99202; 99281; 99285; J0456; J1650; J1815; J2060; J2543; J2920; J2930; J3370; J7040; J7050; J7120; J7512

== ENCOUNTER 2017-07-24 17:04 | Inpatient (IN) | payer OTHER ==
[~2017-07-24] VITALS: Ht 162.6 cm; Wt 71.5 kg
[~2017-07-24 17:04] MED LIST changes: +APRESOLINE25 MG PO; +AUGMENTIN875 MG PO; +CALCIUM CARB1 TABLET PO; +K-DUR20 MEQ PO
[2017-07-24 17:41] LABS: BASOPHIL (%) 0.2 % (0-1); EOSINOPHIL (%) 0.9 % (0-5); EOSINOPHIL COUNT 0.1 K/uL (0-0.3); HEMATOCRIT 29.1 % (38.0-50.0); HEMOGLOBIN 10.1 G/DL (12.5-16.6); IMMATURE GRANULOCYTE (%) 0.4 % (0.0-0.7); LYMPHOCYTE (%) 9.1 % (15-42); LYMPHOCYTE COUNT 1.4 K/uL (1.0-2.8); MCHC 34.7 G/DL (30.0-36.0); MCV 89.3 FL (86-99); MONOCYTE (%) 7.4 % (3-12); MONOCYTE COUNT 1.1 K/uL (0-0.8); NEUTROPHIL COUNT 12.5 K/uL (1.8-6.4); PLATELET COUNT 185 K/uL (156-360); RBC DIS.WIDTH-SD 42.5 % (39-53); RED BLOOD COUNT 3.26 M/uL (4.00-5.50); WHITE BLOOD COUNT 15.2 K/uL (4.1-10.2)
[2017-07-24 17:49] LABS: ALBUMIN 3.6 g/dL (3.2-4.8); CHLORIDE 111 mEq/L (99-109); POTASSIUM 4.8 mEq/L (3.7-5.4); SODIUM 138 mEq/L (136-147)
[2017-07-24 17:52] LABS: GLUCOSE 120 mg/dL (70-99); TOTAL PROTEIN 7.3 g/dL (6.4-8.3)
[2017-07-24 17:54] LABS: TOTAL BILIRUBIN 0.4 mg/dL (0.0-1.0)
[2017-07-24 17:55] LABS: ALKALINE PHOSPHATASE 76 IU/L (3-129); CREATININE 1.4 mg/dL (0.6-1.3); GFR ESTIMATE (CALCULATED) 51 mL/min/ (58.99-99999)
[2017-07-24 17:56] LABS: UREA NITROGEN (BUN) 42 mg/dL (9-23)
[2017-07-24 17:57] LABS: AST (GOT) 16 IU/L (2-34)
[2017-07-24 17:58] LABS: ALT (GPT) 12 IU/L (3-49)
[2017-07-24 17:59] LABS: LIPASE 34 U/L (1.0-51.0)
[2017-07-24 20:26] LABS: TROP-I INTERPRETATION NEGATIVE; TROPONIN-I 0.01 ng/mL (0.0-0.30)
[2017-07-24] MEDS ORDERED: CLOPIDOGREL75 MG PO (21:20)
[2017-07-24] MEDS ORDERED: MONTELUKAST SOD10 MG PO (21:21)
[2017-07-24] MEDS ORDERED: NOVOLOG 10100 UNITS/ SC (21:22)
[2017-07-24] MEDS ORDERED: ZOLPIDEM TARTRA10 MG PO (21:31)
[2017-07-24] MEDS ORDERED: COLACE100 MG PO (21:31)
[2017-07-24] MEDS ORDERED: GUAIFENESIN600 M1 PO (21:32)
[2017-07-24] MEDS ORDERED: CALCIUM CARB1 TABLET PO (21:32)
[2017-07-24] MEDS ORDERED: ADVIL200 MG PO (21:33)
[2017-07-24 23:15] VITALS: BP 125/65
[2017-07-25 05:45] VITALS: BP 121/79
[2017-07-25 06:11] LABS: HEMATOCRIT 26.9 % (38.0-50.0); HEMOGLOBIN 8.8 G/DL (12.5-16.6); MCH 30.4 PG (29.0-34.0); MCHC 32.7 G/DL (30.0-36.0); MCV 93.1 FL (86-99); PLATELET COUNT 187 K/uL (156-360); RBC DIS.WIDTH-CV 13.1 % (11.8-14.6); RBC DIS.WIDTH-SD 44.5 % (39-53); RED BLOOD COUNT 2.89 M/uL (4.00-5.50); WHITE BLOOD COUNT 13.9 K/uL (4.1-10.2)
[2017-07-25 06:46] LABS: CHLORIDE 112 MEQ/L (99-109); CREATININE 1.3 MG/DL (0.6-1.3); GFR ESTIMATE (CALCULATED) 56 mL/min/ (58.99-99999); GLUCOSE 147 mg/dL (70-99); POTASSIUM 5.4 MEQ/L (3.7-5.4); SODIUM 138 MEQ/L (136-147); UREA NITROGEN (BUN) 42 mg/dL (9-23)
[2017-07-25 08:17] VITALS: BP 120/74
[2017-07-25 12:23] VITALS: BP 117/61
[2017-07-25 15:50] VITALS: BP 147/72
[2017-07-25 19:55] VITALS: BP 145/67
[2017-07-26 00:20] VITALS: BP 125/73
[2017-07-26 05:00] VITALS: BP 146/69
[2017-07-26 05:44] LABS: BASOPHIL (%) 0.1 % (0-1); EOSINOPHIL (%) 0 % (0-5); HEMATOCRIT 28.3 % (38.0-50.0); HEMOGLOBIN 9.2 G/DL (12.5-16.6); IMMATURE GRANULOCYTE (%) 0.8 % (0.0-0.7); LYMPHOCYTE COUNT 0.8 K/uL (1.0-2.8); MCH 30.1 PG (29.0-34.0); MCHC 32.5 G/DL (30.0-36.0); MCV 92.5 FL (86-99); MONOCYTE (%) 2.2 % (3-12); MONOCYTE COUNT 0.4 K/uL (0-0.8); NEUTROPHIL (%) 91.9 % (45-76); NEUTROPHIL COUNT 15.3 K/uL (1.8-6.4); PLATELET COUNT 199 K/uL (156-360); RBC DIS.WIDTH-CV 13.1 % (11.8-14.6); RBC DIS.WIDTH-SD 44.1 % (39-53); RED BLOOD COUNT 3.06 M/uL (4.00-5.50); WHITE BLOOD COUNT 16.7 K/uL (4.1-10.2)
[2017-07-26 06:06] LABS: CHLORIDE 114 MEQ/L (99-109); CREATININE 1.1 MG/DL (0.6-1.3); GFR ESTIMATE (CALCULATED) > 59 mL/min/ (58.99-99999); GLUCOSE 209 mg/dL (70-99); IRON 81 MCG/DL (35-150); POTASSIUM 4.6 MEQ/L (3.7-5.4); SODIUM 140 MEQ/L (136-147); TRANSFERRIN (TIBC) 160.3 mg/dL (215-380); TRANSFERRIN SATUR. 51 % (20-55); UREA NITROGEN (BUN) 34 mg/dL (9-23)
[2017-07-26 08:21] VITALS: BP 136/66
[2017-07-26 08:28] LABS: FOLIC ACID (FOLATE) 6.3 NG/ML (5.0-22.0)
[2017-07-26 21:00] VITALS: BP 158/78
[2017-07-27 03:52] VITALS: BP 161/84
[2017-07-27 06:03] LABS: CHLORIDE 114 MEQ/L (99-109); CREATININE 0.9 MG/DL (0.6-1.3); GFR ESTIMATE (CALCULATED) > 59 mL/min/ (58.99-99999); GLUCOSE 179 mg/dL (70-99); POTASSIUM 4.2 MEQ/L (3.7-5.4); SODIUM 143 MEQ/L (136-147); UREA NITROGEN (BUN) 28 mg/dL (9-23)
[2017-07-27 07:02] VITALS: BP 147/91
[2017-07-27 07:13] LABS: BASOPHIL (%) 0.1 % (0-1); EOSINOPHIL (%) 0 % (0-5); LYMPHOCYTE (%) 3.6 % (15-42); LYMPHOCYTE COUNT 0.7 K/uL (1.0-2.8); MCH 30.1 PG (29.0-34.0); MCHC 33.3 G/DL (30.0-36.0); MCV 90.4 FL (86-99); MONOCYTE COUNT 0.8 K/uL (0-0.8); NEUTROPHIL (%) 91.3 % (45-76); NEUTROPHIL COUNT 17.9 K/uL (1.8-6.4); NRBC (%) 0.1 /100 WBC (0-0); RBC DIS.WIDTH-CV 13.1 % (11.8-14.6); RBC DIS.WIDTH-SD 43.2 % (39-53); RED BLOOD COUNT 3.32 M/uL (4.00-5.50); WHITE BLOOD COUNT 19.6 K/uL (4.1-10.2)
[2017-07-27 07:46] VITALS: BP 113/74
[2017-07-27 07:46] LABS: THYROTROPIN (TSH) 0.46 MIU/L (0.4-5.5)
[2017-07-27 08:14] LABS: PLATELET COUNT 193 K/uL (156-360)
[2017-07-27 11:24] VITALS: BP 160/78
[2017-07-27 15:21] VITALS: BP 174/84
[2017-07-27 19:00] VITALS: BP 154/80
[2017-07-28 00:21] VITALS: BP 110/66
[2017-07-28 03:27] VITALS: BP 123/72
[2017-07-28 05:25] LABS: BASOPHIL (%) 0.1 % (0-1); EOSINOPHIL (%) 0 % (0-5); HEMATOCRIT 30.2 % (38.0-50.0); LYMPHOCYTE (%) 9.7 % (15-42); LYMPHOCYTE COUNT 1.2 K/uL (1.0-2.8); MCH 29.8 PG (29.0-34.0); MCHC 33.1 G/DL (30.0-36.0); MCV 89.9 FL (86-99); MONOCYTE (%) 9.8 % (3-12); MONOCYTE COUNT 1.2 K/uL (0-0.8); NEUTROPHIL (%) 79.4 % (45-76); NEUTROPHIL COUNT 9.4 K/uL (1.8-6.4); PLATELET COUNT 203 K/uL (156-360); RBC DIS.WIDTH-SD 42.6 % (39-53); RED BLOOD COUNT 3.36 M/uL (4.00-5.50); WHITE BLOOD COUNT 11.8 K/uL (4.1-10.2)
[2017-07-28 05:53] LABS: ALKALINE PHOSPHATASE 64 IU/L (3-129); ALT (GPT) 10 IU/L (3-49); AST (GOT) 13 IU/L (2-34); CHLORIDE 111 MEQ/L (99-109); GFR ESTIMATE (CALCULATED) > 59 mL/min/ (58.99-99999); GLUCOSE 156 mg/dL (70-99); POTASSIUM 3.9 MEQ/L (3.7-5.4); SODIUM 147 MEQ/L (136-147); TOTAL BILIRUBIN 0.1 MG/DL (0.0-1.0); TOTAL PROTEIN 5.7 G/DL (6.4-8.3); UREA NITROGEN (BUN) 33 mg/dL (9-23)
[2017-07-28 07:03] LABS: COMMENTS - BLOOD GASES A+C+; DEVICE NRB MASK; O2 FLOW 15 L/MIN; SITE RR
[2017-07-28 07:04] LABS: FI02 100 %; PCO2 38 mm Hg (35-45); PO2 57 mm Hg (80-100); TOTAL RESP RATE 30 resp/min; pH 7.46 (7.35-7.45)
[2017-07-28 07:19] VITALS: BP 125/58
[2017-07-28 07:41] LABS: INTER. NORMALIZED RATIO 1.1
[2017-07-28 07:44] LABS: PTT 21.5 SEC (25-37)
[2017-07-28 08:02] LABS: CHLORIDE 111 MEQ/L (99-109); CREATININE 1.1 MG/DL (0.6-1.3); GFR ESTIMATE (CALCULATED) > 59 mL/min/ (58.99-99999); GLUCOSE 152 mg/dL (70-99); POTASSIUM 3.9 MEQ/L (3.7-5.4); SODIUM 144 MEQ/L (136-147); UREA NITROGEN (BUN) 34 mg/dL (9-23)
[2017-07-28 11:29] VITALS: BP 154/80
[2017-07-28 16:30] VITALS: BP 131/72
[2017-07-28 20:45] VITALS: BP 130/73
[2017-07-29 00:30] VITALS: BP 145/78
[2017-07-29 04:20] VITALS: BP 140/74
[2017-07-29 05:28] LABS: BASOPHIL (%) 0.1 % (0-1); EOSINOPHIL (%) 0 % (0-5); HEMATOCRIT 33.2 % (38.0-50.0); HEMOGLOBIN 11.1 G/DL (12.5-16.6); IMMATURE GRANULOCYTE (%) 0.6 % (0.0-0.7); LYMPHOCYTE (%) 2.9 % (15-42); LYMPHOCYTE COUNT 0.6 K/uL (1.0-2.8); MCH 29.9 PG (29.0-34.0); MCHC 33.4 G/DL (30.0-36.0); MCV 89.5 FL (86-99); MONOCYTE (%) 5.5 % (3-12); MONOCYTE COUNT 1.1 K/uL (0-0.8); NEUTROPHIL (%) 90.9 % (45-76); NEUTROPHIL COUNT 17.4 K/uL (1.8-6.4); PLATELET COUNT 208 K/uL (156-360); RBC DIS.WIDTH-CV 12.9 % (11.8-14.6); RBC DIS.WIDTH-SD 42.1 % (39-53); RED BLOOD COUNT 3.71 M/uL (4.00-5.50); WHITE BLOOD COUNT 19.1 K/uL (4.1-10.2)
[2017-07-29 06:42] LABS: ALKALINE PHOSPHATASE 62 IU/L (3-129); ALT (GPT) 11 IU/L (3-49); AST (GOT) 8 IU/L (2-34); CHLORIDE 114 MEQ/L (99-109); CREATININE 1.1 MG/DL (0.6-1.3); GFR ESTIMATE (CALCULATED) > 59 mL/min/ (58.99-99999); GLUCOSE 227 mg/dL (70-99); POTASSIUM 3.7 MEQ/L (3.7-5.4); SODIUM 149 MEQ/L (136-147); TOTAL PROTEIN 6.1 G/DL (6.4-8.3); UREA NITROGEN (BUN) 37 mg/dL (9-23)
[2017-07-29 06:47] LABS: TOTAL BILIRUBIN 0.5 MG/DL (0.0-1.0)
[2017-07-29 08:00] VITALS: BP 141/78
[2017-07-29 11:07] VITALS: BP 128/80
[2017-07-29 15:30] VITALS: BP 169/84
[2017-07-29 20:00] VITALS: BP 137/56
[2017-07-30 00:31] VITALS: BP 137/66
[2017-07-30 05:23] LABS: BASOPHIL (%) 0.1 % (0-1); EOSINOPHIL (%) 0.1 % (0-5); HEMATOCRIT 36.6 % (38.0-50.0); HEMOGLOBIN 11.8 G/DL (12.5-16.6); IMMATURE GRANULOCYTE (%) 0.7 % (0.0-0.7); LYMPHOCYTE (%) 2.4 % (15-42); LYMPHOCYTE COUNT 0.6 K/uL (1.0-2.8); MCH 29.9 PG (29.0-34.0); MCHC 32.2 G/DL (30.0-36.0); MCV 92.9 FL (86-99); MONOCYTE (%) 5.2 % (3-12); MONOCYTE COUNT 1.2 K/uL (0-0.8); NEUTROPHIL (%) 91.5 % (45-76); NEUTROPHIL COUNT 20.6 K/uL (1.8-6.4); PLATELET COUNT 178 K/uL (156-360); RBC DIS.WIDTH-SD 44.2 % (39-53); RED BLOOD COUNT 3.94 M/uL (4.00-5.50); WHITE BLOOD COUNT 22.6 K/uL (4.1-10.2)
[2017-07-30 06:23] LABS: CHLORIDE 114 MEQ/L (99-109); CREATININE 1.2 MG/DL (0.6-1.3); GFR ESTIMATE (CALCULATED) > 59 mL/min/ (58.99-99999); GLUCOSE 235 mg/dL (70-99); POTASSIUM 3.7 MEQ/L (3.7-5.4); SODIUM 152 MEQ/L (136-147); UREA NITROGEN (BUN) 40 mg/dL (9-23)
[2017-07-30 08:16] VITALS: BP 182/85
[2017-07-30 11:58] VITALS: BP 181/74
[2017-07-30 14:48] VITALS: BP 144/71
[2017-07-30 19:34] VITALS: BP 160/88
[2017-07-30 23:50] VITALS: BP 187/98
[2017-07-31 03:40] VITALS: BP 158/74
[2017-07-31 05:55] LABS: CHLORIDE 119 MEQ/L (99-109); CREATININE 1.2 MG/DL (0.6-1.3); GFR ESTIMATE (CALCULATED) > 59 mL/min/ (58.99-99999); GLUCOSE 239 mg/dL (70-99); POTASSIUM 3.5 MEQ/L (3.7-5.4); SODIUM 158 MEQ/L (136-147); UREA NITROGEN (BUN) 46 mg/dL (9-23)
[2017-07-31 07:59] VITALS: BP 170/94
[2017-07-31 11:18] VITALS: BP 148/86
[2017-07-31 15:30] VITALS: BP 130/86
[2017-07-31 20:00] VITALS: BP 149/70
[2017-07-31 23:00] VITALS: BP 132/73
[2017-08-01 05:25] VITALS: BP 130/72
[2017-08-01 06:12] LABS: BASOPHIL (%) 0.1 % (0-1); EOSINOPHIL (%) 0 % (0-5); HEMATOCRIT 33.7 % (38.0-50.0); HEMOGLOBIN 10.6 G/DL (12.5-16.6); IMMATURE GRANULOCYTE (%) 1.4 % (0.0-0.7); LYMPHOCYTE (%) 3.3 % (15-42); LYMPHOCYTE COUNT 0.7 K/uL (1.0-2.8); MCH 29.7 PG (29.0-34.0); MCHC 31.5 G/DL (30.0-36.0); MCV 94.4 FL (86-99); MONOCYTE (%) 5.9 % (3-12); MONOCYTE COUNT 1.2 K/uL (0-0.8); NEUTROPHIL (%) 89.3 % (45-76); NEUTROPHIL COUNT 18.7 K/uL (1.8-6.4); PLATELET COUNT 157 K/uL (156-360); RBC DIS.WIDTH-CV 12.9 % (11.8-14.6); RBC DIS.WIDTH-SD 44.8 % (39-53); RED BLOOD COUNT 3.57 M/uL (4.00-5.50)
[2017-08-01 06:39] LABS: CHLORIDE 122 MEQ/L (99-109); GFR ESTIMATE (CALCULATED) > 59 mL/min/ (58.99-99999); GLUCOSE 225 mg/dL (70-99); POTASSIUM 4.2 MEQ/L (3.7-5.4); SODIUM 159 MEQ/L (136-147); UREA NITROGEN (BUN) 38 mg/dL (9-23)
[2017-08-01 07:30] VITALS: BP 172/98
[2017-08-01 12:20] VITALS: BP 142/63
[2017-08-01 16:13] VITALS: BP 160/72
[2017-08-01 20:00] VITALS: BP 143/73
[2017-08-01 23:50] VITALS: BP 142/70
[2017-08-02] VITALS (7 sets, daily range): BP systolic 137–186; BP diastolic 63–91
[2017-08-02 08:25] LABS: BASOPHIL (%) 0.2 % (0-1); EOSINOPHIL (%) 0.3 % (0-5); EOSINOPHIL COUNT 0.1 K/uL (0-0.3); HEMATOCRIT 34.4 % (38.0-50.0); HEMOGLOBIN 10.8 G/DL (12.5-16.6); IMMATURE GRANULOCYTE (%) 1.2 % (0.0-0.7); LYMPHOCYTE (%) 5.5 % (15-42); LYMPHOCYTE COUNT 1.2 K/uL (1.0-2.8); MCH 29.8 PG (29.0-34.0); MCHC 31.4 G/DL (30.0-36.0); MCV 94.8 FL (86-99); MONOCYTE (%) 4.8 % (3-12); MONOCYTE COUNT 1.1 K/uL (0-0.8); NEUTROPHIL COUNT 19.4 K/uL (1.8-6.4); PLATELET COUNT 148 K/uL (156-360); RBC DIS.WIDTH-SD 45.2 % (39-53); RED BLOOD COUNT 3.63 M/uL (4.00-5.50); WHITE BLOOD COUNT 22.1 K/uL (4.1-10.2)
[2017-08-02 08:49] LABS: CHLORIDE 119 MEQ/L (99-109); GFR ESTIMATE (CALCULATED) > 59 mL/min/ (58.99-99999); GLUCOSE 263 mg/dL (70-99); POTASSIUM 4.2 MEQ/L (3.7-5.4); SODIUM 156 MEQ/L (136-147); UREA NITROGEN (BUN) 36 mg/dL (9-23)
[2017-08-03 03:00] VITALS: BP 149/88
[2017-08-03 08:41] VITALS: BP 120/59
[2017-08-03 09:10] LABS: BASOPHIL (%) 0.1 % (0-1); EOSINOPHIL (%) 0.7 % (0-5); EOSINOPHIL COUNT 0.2 K/uL (0-0.3); HEMATOCRIT 35.3 % (38.0-50.0); HEMOGLOBIN 11.1 G/DL (12.5-16.6); IMMATURE GRANULOCYTE (%) 1.1 % (0.0-0.7); LYMPHOCYTE (%) 6.2 % (15-42); LYMPHOCYTE COUNT 1.4 K/uL (1.0-2.8); MCH 29.3 PG (29.0-34.0); MCHC 31.4 G/DL (30.0-36.0); MCV 93.1 FL (86-99); MONOCYTE (%) 3.4 % (3-12); MONOCYTE COUNT 0.8 K/uL (0-0.8); NEUTROPHIL (%) 88.5 % (45-76); NEUTROPHIL COUNT 20.4 K/uL (1.8-6.4); PLATELET COUNT 139 K/uL (156-360); RBC DIS.WIDTH-CV 12.7 % (11.8-14.6); RBC DIS.WIDTH-SD 43.8 % (39-53); RED BLOOD COUNT 3.79 M/uL (4.00-5.50)
[2017-08-03 09:33] LABS: CHLORIDE 114 MEQ/L (99-109); CREATININE 0.9 MG/DL (0.6-1.3); GFR ESTIMATE (CALCULATED) > 59 mL/min/ (58.99-99999); GLUCOSE 180 mg/dL (70-99); POTASSIUM 4.1 MEQ/L (3.7-5.4); SODIUM 151 MEQ/L (136-147); UREA NITROGEN (BUN) 26 mg/dL (9-23)
[2017-08-03 12:07] VITALS: BP 154/76
[2017-08-03 15:33] VITALS: BP 137/99
[2017-08-03 20:38] VITALS: BP 146/73
[2017-08-03 23:45] VITALS: BP 132/64
[2017-08-04] VITALS (7 sets, daily range): BP systolic 109–171; BP diastolic 56–90
[2017-08-05 04:55] VITALS: BP 144/69
[2017-08-05 07:35] VITALS: BP 170/81
[2017-08-05 08:31] LABS: BASOPHIL (%) 0.1 % (0-1); EOSINOPHIL (%) 1.1 % (0-5); EOSINOPHIL COUNT 0.2 K/uL (0-0.3); HEMATOCRIT 31.3 % (38.0-50.0); IMMATURE GRANULOCYTE (%) 0.8 % (0.0-0.7); LYMPHOCYTE (%) 8.8 % (15-42); LYMPHOCYTE COUNT 1.3 K/uL (1.0-2.8); MCH 29.4 PG (29.0-34.0); MCHC 31.9 G/DL (30.0-36.0); MCV 92.1 FL (86-99); MONOCYTE (%) 4.7 % (3-12); MONOCYTE COUNT 0.7 K/uL (0-0.8); NEUTROPHIL (%) 84.5 % (45-76); NEUTROPHIL COUNT 12.3 K/uL (1.8-6.4); PLATELET COUNT 131 K/uL (156-360); RBC DIS.WIDTH-CV 12.6 % (11.8-14.6); RBC DIS.WIDTH-SD 42.4 % (39-53); WHITE BLOOD COUNT 14.5 K/uL (4.1-10.2)
[2017-08-05 08:56] LABS: ALBUMIN 2.3 G/DL (3.2-4.8); ALKALINE PHOSPHATASE 54 IU/L (3-129); ALT (GPT) 13 IU/L (3-49); AST (GOT) 9 IU/L (2-34); CHLORIDE 107 MEQ/L (99-109); CREATININE 0.8 MG/DL (0.6-1.3); GFR ESTIMATE (CALCULATED) > 59 mL/min/ (58.99-99999); GLUCOSE 142 mg/dL (70-99); POTASSIUM 3.9 MEQ/L (3.7-5.4); SODIUM 144 MEQ/L (136-147); TOTAL BILIRUBIN 0.4 MG/DL (0.0-1.0); UREA NITROGEN (BUN) 22 mg/dL (9-23)
[2017-08-05 11:59] VITALS: BP 167/81
[2017-08-05 19:56] VITALS: BP 145/84
[2017-08-05 23:57] VITALS: BP 177/95
[2017-08-06 03:44] VITALS: BP 148/64
[2017-08-06 07:00] VITALS: BP 130/58
[2017-08-06 13:04] VITALS: BP 126/69
[2017-08-06 15:15] VITALS: BP 141/65
[2017-08-06 22:47] VITALS: BP 129/82
[2017-08-07 06:50] VITALS: BP 182/86
[2017-08-07 09:51] VITALS: BP 129/60
[2017-08-07 11:58] LABS: BASOPHIL (%) 0.1 % (0-1); EOSINOPHIL (%) 0.3 % (0-5); EOSINOPHIL COUNT 0.1 K/uL (0-0.3); HEMATOCRIT 32.5 % (38.0-50.0); HEMOGLOBIN 10.8 G/DL (12.5-16.6); IMMATURE GRANULOCYTE (%) 0.8 % (0.0-0.7); LYMPHOCYTE (%) 5.9 % (15-42); LYMPHOCYTE COUNT 0.9 K/uL (1.0-2.8); MCH 29.4 PG (29.0-34.0); MCHC 33.2 G/DL (30.0-36.0); MCV 88.6 FL (86-99); MONOCYTE (%) 2.8 % (3-12); MONOCYTE COUNT 0.4 K/uL (0-0.8); NEUTROPHIL (%) 90.1 % (45-76); NEUTROPHIL COUNT 13.1 K/uL (1.8-6.4); PLATELET COUNT 162 K/uL (156-360); RBC DIS.WIDTH-CV 12.4 % (11.8-14.6); RBC DIS.WIDTH-SD 39.4 % (39-53); RED BLOOD COUNT 3.67 M/uL (4.00-5.50); WHITE BLOOD COUNT 14.5 K/uL (4.1-10.2)
[2017-08-07 12:46] LABS: ALBUMIN 2.4 G/DL (3.2-4.8); ALKALINE PHOSPHATASE 64 IU/L (3-129); ALT (GPT) 12 IU/L (3-49); AST (GOT) 13 IU/L (2-34); CHLORIDE 101 MEQ/L (99-109); CREATININE 0.9 MG/DL (0.6-1.3); GFR ESTIMATE (CALCULATED) > 59 mL/min/ (58.99-99999); GLUCOSE 206 mg/dL (70-99); POTASSIUM 3.9 MEQ/L (3.7-5.4); SODIUM 136 MEQ/L (136-147); TOTAL BILIRUBIN 0.5 MG/DL (0.0-1.0); TOTAL PROTEIN 5.4 G/DL (6.4-8.3); UREA NITROGEN (BUN) 15 mg/dL (9-23)
[2017-08-07 15:15] VITALS: BP 112/53
[2017-08-07 23:10] VITALS: BP 136/77
[2017-08-08 06:55] VITALS: BP 178/85
[2017-08-08 16:15] VITALS: BP 139/90
[2017-08-08 20:50] VITALS: BP 164/78
[2017-08-08 22:45] VITALS: BP 148/76
[2017-08-09 06:46] LABS: BASOPHIL (%) 0.1 % (0-1); EOSINOPHIL (%) 0.8 % (0-5); EOSINOPHIL COUNT 0.1 K/uL (0-0.3); HEMATOCRIT 29.6 % (38.0-50.0); IMMATURE GRANULOCYTE (%) 0.5 % (0.0-0.7); LYMPHOCYTE (%) 16.3 % (15-42); LYMPHOCYTE COUNT 1.7 K/uL (1.0-2.8); MCH 29.9 PG (29.0-34.0); MCHC 33.8 G/DL (30.0-36.0); MCV 88.6 FL (86-99); MONOCYTE (%) 6.2 % (3-12); MONOCYTE COUNT 0.7 K/uL (0-0.8); NEUTROPHIL (%) 76.1 % (45-76); NEUTROPHIL COUNT 8.2 K/uL (1.8-6.4); PLATELET COUNT 171 K/uL (156-360); RBC DIS.WIDTH-CV 12.5 % (11.8-14.6); RBC DIS.WIDTH-SD 39.8 % (39-53); RED BLOOD COUNT 3.34 M/uL (4.00-5.50); WHITE BLOOD COUNT 10.7 K/uL (4.1-10.2)
[2017-08-09 07:17] LABS: ALBUMIN 2.4 G/DL (3.2-4.8); ALKALINE PHOSPHATASE 54 IU/L (3-129); ALT (GPT) 15 IU/L (3-49); AST (GOT) 15 IU/L (2-34); CHLORIDE 107 MEQ/L (99-109); CREATININE 0.8 MG/DL (0.6-1.3); GFR ESTIMATE (CALCULATED) > 59 mL/min/ (58.99-99999); POTASSIUM 3.8 MEQ/L (3.7-5.4); SODIUM 142 MEQ/L (136-147); TOTAL BILIRUBIN 0.4 MG/DL (0.0-1.0); TOTAL PROTEIN 5.3 G/DL (6.4-8.3); UREA NITROGEN (BUN) 17 mg/dL (9-23)
[2017-08-09 07:18] LABS: GLUCOSE 92 mg/dL (70-99)
[2017-08-09 07:30] VITALS: BP 175/80
[2017-08-09] MEDS ORDERED: TYLENOL REGULA325 MG PO (14:31)
[2017-08-09] MEDS ORDERED: DUONEB 2.5-0.5 M3 ML AEROSOL (14:31)
[2017-08-09] MEDS ORDERED: PREDNISONE10 M1 PO (14:33)
[2017-08-09 16:10] VITALS: BP 132/72
[2017-08-10 00:45] VITALS: BP 145/66
[2017-08-10 06:55] VITALS: BP 147/87
[2017-08-10] MEDS ORDERED: OXYGEN MC (08:07)
== END 2017-08-10 14:25 | disposition home health service (06) | DRG 190 ==
LOC: EME 17:04 → 4EAST 21:53 → EDOF 21:53 → ENRESERV 22:04 → 4EAST 23:10 → ENRESERV 08-04 16:32 → 5EAST 08-04 18:19
PROVIDERS: Emergency Medicine; Family Medicine Sports Medicine; Hospitalist
DX: J44.0 Chronic obstructive pulmonary disease with (acute) lower respiratory infection (principal); J15.9 Unspecified bacterial pneumonia; J96.21 Acute and chronic respiratory failure with hypoxia; J44.1 Chronic obstructive pulmonary disease with (acute) exacerbation; Z66 Do not resuscitate; J20.9 Acute bronchitis, unspecified; E78.5 Hyperlipidemia, unspecified; I50.9 Heart failure, unspecified; E86.0 Dehydration; F02.81 Dementia in other diseases classified elsewhere, unspecified severity, with behavioral disturbance; I13.0 Hypertensive heart and chronic kidney disease with heart failure and stage 1 through stage 4 chronic kidney disease, or unspecified chronic kidney disease; N18.9 Chronic kidney disease, unspecified; I25.10 Atherosclerotic heart disease of native coronary artery without angina pectoris; G30.9 Alzheimer's disease, unspecified; E03.9 Hypothyroidism, unspecified; N40.0 Benign prostatic hyperplasia without lower urinary tract symptoms; K59.00 Constipation, unspecified; E11.22 Type 2 diabetes mellitus with diabetic chronic kidney disease; R32 Unspecified urinary incontinence; R15.9 Full incontinence of feces; F01.51 Vascular dementia, unspecified severity, with behavioral disturbance; E87.0 Hyperosmolality and hypernatremia; D64.9 Anemia, unspecified; F05 Delirium due to known physiological condition; K21.9 Gastro-esophageal reflux disease without esophagitis; J69.0 Pneumonitis due to inhalation of food and vomit; Z79.4 Long term (current) use of insulin; Z87.01 Personal history of pneumonia (recurrent); Z95.0 Presence of cardiac pacemaker; Z87.891 Personal history of nicotine dependence; Z79.899 Other long term (current) drug therapy
CPT/HCPCS: 36600; 70450; 71045; 74177; 76705; 80048; 80048 91; 80053; 80202; 81003; 82140; 82272; 82607; 82746; 82803; 82948; 83540; 83605; 83690; 83880; 84145 90; 84425 90; 84443; 84466; 84484; 85025; 85027; 85379; 85610; 85730; 87070; 87205; 93005; 93970; 94640; 94640 76; 94760; 94799; 99202; 99281; 99285; C9113; J1630; J1650; J1815; J1956; J2060; J2405; J2543; J2920; J2930; J3010; J3370; J3480; J7030; J7050; J7120; J7512